=== PATIENT | female | born 1965 | race Caucasian/White ===

== ENCOUNTER 2017-12-09 05:26 | Day surgery (SDC) | payer OTHER ==
[~2017-12-09] VITALS: Ht 160 cm; Wt 95.3 kg
--- NOTE | ~2017-12-09 | O ---
[facility] [place] [address] OPERATIVE REPORT Name: DELBERT GODWIN Room #: [facility]..#: [id number] Admission: 12/09/17 Attend Phys: Bello Pineda MD Discharge: 12/09/17 Date of : 69 Report #: [id number] THIS REPORT FOR: //name// CC: Bello Mike DATE OF SERVICE: 12/09/2017 PREOPERATIVE DIAGNOSIS: Right knee medial meniscus tear. POSTOPERATIVE DIAGNOSES: 1. Right knee medial meniscus tear. 2. 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 3. Grade 3 chondromalacia of trochlear groove. PROCEDURES: 1. Right knee arthroscopy with partial medial meniscectomy. 2. Chondroplasty of medial femoral condyle and trochlear groove. SURGEON: Bello Pineda MD FOOD SCIENTIST: Danuta Sykes PA-C. ANESTHESIA: LMA. TOURNIQUET TIME: 17 minutes. COMPLICATIONS: None. SPECIMENS: None. CONDITION UPON LEAVING THE OPERATING ROOM: Stable. INDICATIONS FOR PROCEDURE: The patient is a 52-year-old female who sustained an injury to her right knee. She had an MRI scan showing to have a tear of the posterior horn of the medial meniscus as well as some underlying chondromalacia. After discussion with her, she elected for right knee arthroscopy with partial medial meniscectomy and debridement as needed. DESCRIPTION OF PROCEDURE: Risks, benefits, alternatives, complications were discussed in detail with the patient including but not limited to risk of anesthesia, risk of damage to nerves, arteries, blood vessels, risk for infection, bleeding, risk for continued knee pain and need for reoperation. Informed consent was obtained from the patient. Right knee was appropriately marked in the preoperative holding area. IV Ancef was given for preoperative antibiotics. She was brought to the operating room and placed in the supine [address] [address] OPERATIVE REPORT Name: DELBERT GODWIN Harshal Room #: [facility] Artur#: [id number] Admission: 12/09/17 Attend Phys: Bello Pineda MD Discharge: 12/09/17 Date of : 69 Report #: [id number] position on the operating room table. LMA anesthesia was induced without complication. A tourniquet was placed on the right thigh. Right lower extremity was prepped and draped in normal sterile fashion. Timeout was performed properly identifying the patient, procedure as well as the instrumentation. All in the operating room were in agreement. Right lower extremity was exsanguinated, tourniquet was inflated. Tourniquet time was 17 minutes. Standard anterolateral portal was established with an 11 blade through the skin. Arthroscope was introduced into the patellofemoral compartment and diagnostic arthroscopy was undertaken. Patellofemoral visualized and found to be without pathology. Medial gutter was visualized and found to be without pathology. Medial compartment was visualized and medial portal was established under arthroscopic visualization. Probe was introduced into the medial compartment and there was noted to be a complex tear of the posterior horn of the medial meniscus. This was trimmed back to a stable rim with arthroscopic biter and smoothed back with a shaver. In addition, there was grade 3-4 chondromalacia of the medial femoral condyle with several unstable cartilaginous flaps. Chondroplasty of this area was performed with an oscillating shaver. Notch was visualized and found to have an intact anterior cruciate ligament. Lateral compartment was visualized and found to have an intact lateral meniscus and articular cartilage. Lateral gutter was visualized and found to be without pathology. Scope was placed back in the patellofemoral compartment and a little bit further down on the trochlear groove, there was an area of grade 3 chondromalacia and this was smoothed back with a oscillating shaver. After this, all fluid was allowed to drain from the knee. Knee was injected with 10 mL of 0.5% Marcaine. Incision was closed with 3-0 nylon. Soft dressing of Adaptic, 4 x 4, Webril, Gilson wrap were applied. The patient tolerated this procedure well and went to the recovery room under care of Anesthesia postoperatively. By: [id number] Bello Pineda MD /warren
[~2017-12-09 05:26] MED LIST: ALLERGY10 M2 PO; CENTRUM SILVER1 EAC4 PO
[2017-12-09 14:00] VITALS: BP 135/77
[2017-12-09] MEDS ORDERED: HYDROCODONE-AP1 EAC6 PO (15:06)
[2017-12-09 15:18] VITALS: BP 135/77
== END 2017-12-09 16:15 | disposition home or self-care (01) ==
LOC: TBA 05:26 → OR 05:26 → TBA 05:27 → OR 12:00
DX: S83.241A Other tear of medial meniscus, current injury, right knee, initial encounter (principal); M94.261 Chondromalacia, right knee; G47.33 Obstructive sleep apnea (adult) (pediatric); Z98.890 Other specified postprocedural states; Z79.891 Long term (current) use of opiate analgesic; X58.XXXA Exposure to other specified factors, initial encounter; Y93.89 Activity, other specified; Y92.89 Other specified places as the place of occurrence of the external cause; Y99.8 Other external cause status
CPT/HCPCS: 50010; 50101; 50405; 51038; 54170; 56526; 62110; 62900; 70005